=== PATIENT | female | born 1990 ===

== ENCOUNTER 2021-08-08 12:49 | Outpatient (CLI) | payer OTHER ==
--- NOTE | 2021-08-09 09:12 | XRAY Report ---
PROCEDURE: Ankle 3 View LT INDICATIONS: LEFT ANKLE PAIN TECHNIQUE: 3 views of the ankle were acquired. COMPARISON: None FINDINGS: Bones: No acute fractures or dislocations. Ankle mortise is normally aligned. No suspicious bony l esions. Soft tissues: No suspicious soft tissue calcification. Mild seen over the lateral malleolus. IMPRESSION: No acute osseous abnormality. If there is clinical concern or persistent symptoms, addit ional imaging such as repeat radiographs or advanced imaging (e.g. CT, MRI) may be helpful for furthe r evaluation. Reviewed by: Mir Avalos MD on 08/09/2021 9:11 AM PDT Approved by: Mir Avalos MD on 08/09/2021 9:11 AM PDT Station ID: [id number]
== END 2021-08-08 23:59 ==
LOC: DI.N 12:49
PROVIDERS: ATTEND Physician Assistant Medical
DX: S93.402A Sprain of unspecified ligament of left ankle, initial encounter (principal)